=== PATIENT | male | born 1990 | race Caucasian/White ===

== ENCOUNTER 2023-09-23 10:08 | Emergency (ER) | payer OTHER, SELFPAY ==
[2023-09-23 10:19] VITALS: BP 129/95
--- NOTE | 2023-09-23 11:23 | ED.GENMED ---
History of Present Illness
General
Chief Complaint: Abdominal Pain
Time Seen by Provider: 09/23/23 11:00
History of Present Illness
History of Present Illness:
33-year-old male presents the emergency department for patient upper abdominal pain. He states he has had this pain for approximately 1 year after undergoing umbilical hernia repair. His original surgery was at [facility], [place], states he
developed severe pain after the surgery followed up with a different surgeon a revision procedure was done due to mesh misplacement. He states he has not had any improvement in his pain. He is unable to lay flat on his stomach due to pain. Denies
any fevers or chills. Denies any nausea, vomiting, or bowel movement changes.
Past History
Past History
ED Past Medical History: None
ED Past Surgical History: Orthopedic (Right wrist surgery)
Social History
Tobacco: Vaping
Alcohol: None
Personal: Single
Living: with family
Employment: Employed
Review of Systems
Review of Systems
Allergies reviewed?: Yes
All Other Systems: ROS reviewed and negative except as documented in HPI and ROS
Phy Exam
Physical Exam
Physical Exam:
GEN: Well appearing, NAD, WDWN
HEENT: Oral mucosa moist, no scleral icterus
Cardiac: Regular rate
Lung: No respiratory distress, no tachypnea
Abdomen: Flat, soft, focal area of firmness to the supraumbilical/epigastric abdomen likely scar tissue versus mesh securing device no fluctuance or erythema, no palpable hernias
MSK: No gross deformity or injuries
Skin: Good color, no pallor or jaundice, no rashes
Neuro: AO x3, moves all extremities freely
Psych: Calm, cooperative
Course
Vital Signs
Initial and Last Documented VS:
Initial Vital Signs
Temp Pulse Resp BP Pulse Ox
98.7 F 75 18 129/95 99
09/23/23 10:19 09/23/23 10:19 09/23/23 10:19 09/23/23 10:19 09/23/23 10:19
Last Documented Vital Signs
Temp Pulse Resp BP Pulse Ox
98.7 F 75 18 129/95 99
09/23/23 10:19 09/23/23 10:19 09/23/23 10:19 09/23/23 10:19 09/23/23 10:19
MDM/Problems Addressed
MDM/Problems Addressed:
Do not see any indication for imaging at this juncture. This is chronic pain after a surgical procedure. Will recommend he follow-up with surgery to discuss any potential revision procedures that may benefit him
*Critical Care Note
Total Time (30-74mins, 75-104mins- exclusive of procedures): Not Applicable
ED Attending Note
-
Portions of this chart may have been created with voice recognition software.� Occasional wrong word or��sound alike� substitutions may have occurred due to the inherent limitations of voice recognition software.
Discharge Plan
Departure
Patient Disposition: Home (Routine Discharge)
Date of Disposition: 09/23/23
Time of Disposition: 11:24
Patient with high blood pressure during this ER visit?: No
Discharge Problem:
Chronic abdominal pain
Prescriptions:
No Action
No Current Medications
0
Referrals:
Eleuterio Hollins MD [Active] -
Activity Restrictions/Additional Instructions:
Take 600mg ibuprofen every 8-12 hours as needed for pain
Follow up with either your surgeon OR the surgeon listed on your discharge summary
Interventions
Interventions:
*Risk Screen - Suicide Last Done: 09/23/23 10:22
*General Assessment Last Done: 09/23/23 10:22
*Neglect/Abuse Screening Last Done: 09/23/23 10:22
ED- Fall Risk Assessment Last Done: 09/23/23 11:47
*Nursing Disposition Last Done: 09/23/23 11:47
OU-Vikobs-Zfejzynlvb Assessment Last Done: 09/23/23 11:47
Discharge Date and Time
Discharge Date/Time: 09/23/23 11:48
Print Language: THAI
== END 2023-09-23 11:48 | disposition home or self-care (01) ==
LOC: EMR 10:08
PROVIDERS: EMERGENCY PHYSICIAN Emergency Medicine
DX: R10.10 Upper abdominal pain, unspecified (principal); G89.29 Other chronic pain; F17.290 Nicotine dependence, other tobacco product, uncomplicated
CPT/HCPCS: 99281

== ENCOUNTER → 2023-10-20 09:53 | Outpatient (REF) | payer OTHER, SELFPAY | LOC: RAD 09:53 | PROVIDERS: ATTENDING PHYSICIAN Surgery; FAMILY PHYSICIAN Family Medicine | DX: R10.33 Periumbilical pain (principal); Z09 Encounter for follow-up examination after completed treatment for conditions other than malignant neoplasm | CPT/HCPCS: 74177; Q9967 ==